=== PATIENT | female | born 1960 | race Caucasian/White ===

== ENCOUNTER 2017-02-01 19:04 | Inpatient (IN) | payer OTHER ==
[~2017-02-01] VITALS: Ht 157.5 cm; Wt 164.2 kg
[2017-02-01 19:04] VITALS: BP 157/79
[~2017-02-01 19:04] MED LIST: ASPIR-LOW81 MG PO; ONDANSETRON HCL4 M2 PO; ONE DAILY 50 P1 EAC1 PO; PERCOCET 10-321 EACH PO; VITAMIN B COMP1 EACH PO
[2017-02-01 22:17] LABS: ABSOLUTE NEUTROPHILS 7.4 thou/uL (1.4-8.2); BASOPHILS 0.5 % (0.0-2.0); EOSINOPHILS 0.8 % (0.0-3.0); HEMATOCRIT 36.9 % (37.0-47.0); HEMOGLOBIN 11.9 gm/dL (12.0-15.0); LYMPHOCYTES 14.7 % (24.0-44.0); MCH 25.3 pg (26.0-34.0); MCHC 32.3 g/dL (28.0-37.0); MCV 78.3 fL (80.0-100.0); MONOCYTES 6.4 % (1.0-8.0); PLATELET COUNT 343 thou/uL (150-400); POLYS 77.6 % (36.0-66.0); RBC 4.71 mil/uL (4.20-5.00); RDW 16.9 % (10.5-14.5); WBC 9.5 thou/uL (4.0-11.0)
[2017-02-01 22:19] LABS: MANUAL DIFF NO
[2017-02-01 22:23] VITALS: BP 152/95
[2017-02-01 22:35] LABS: CALCIUM 9.3 mg/dL (8.5-10.1); CREATININE 0.6 mg/dL (0.6-1.0); POTASSIUM 4.1 mmol/L (3.5-5.1)
[2017-02-01 22:40] LABS: ALBUMIN 3.4 g/dL (3.4-5.0); TOTAL BILIRUBIN 0.3 mg/dL (<0.1-1.0); TOTAL PROTEIN 8.1 g/dL (6.4-8.2)
[2017-02-01 22:54] VITALS: BP 150/71
[2017-02-02 03:20] VITALS: BP 154/67
[2017-02-02 07:54] VITALS: BP 139/73
[2017-02-02 11:52] VITALS: BP 154/80
[2017-02-02 11:59] LABS: HDL CHOLESTEROL 63 mg/dL (>40); TRIGLYCERIDE 121 mg/dL (<150); VLDL 24 mg/dL (<40)
[2017-02-02 12:13] LABS: CHOLESTEROL 157 mg/dL (<200); LDL CHOLESTEROL 70 mg/dL (<100); TC:HDL 2.5 Ratio (Not establshd)
[2017-02-02 15:51] VITALS: BP 140/72
[2017-02-02 19:17] VITALS: BP 132/68
[2017-02-03 05:10] LABS: GLYCOHEMOGLOBIN (HGB A1C) 5.5 % (4.8-5.6)
[2017-02-03 08:16] VITALS: BP 121/76
[2017-02-03 11:42] VITALS: BP 127/74
[2017-02-03 15:53] VITALS: BP 107/56
[2017-02-03 19:31] VITALS: BP 157/79
[2017-02-04 04:12] VITALS: BP 115/84
[2017-02-04 07:44] VITALS: BP 152/80
[2017-02-04 08:00] VITALS: BP 152/80
[2017-02-04] MEDS ORDERED: VOLTAREN GEL 1100 G1 TOP (11:05)
[2017-02-04] MEDS ORDERED: CLEOCIN HCL150 MG PO (11:05)
[2017-02-04] MEDS ORDERED: OXYCODONE HCL30 MG PO (11:05)
[2017-02-04] MEDS ORDERED: NEURONTIN 300300 M1 PO (11:06)
[2017-02-04 11:38] VITALS: BP 152/80
== END 2017-02-04 18:25 | disposition home health service (06) | DRG 872 ==
LOC: ER 19:04 → EROBS 22:19 → 4W 22:19
PROVIDERS: Emergency Medicine; Hospitalist; Nurse Practitioner Acute Care
DX: A41.9 Sepsis, unspecified organism (principal); L03.116 Cellulitis of left lower limb; L03.115 Cellulitis of right lower limb; Z68.44 Body mass index [BMI] 60.0-69.9, adult; E66.01 Morbid (severe) obesity due to excess calories; F41.9 Anxiety disorder, unspecified; M17.10 Unilateral primary osteoarthritis, unspecified knee; Z79.82 Long term (current) use of aspirin; Z79.899 Other long term (current) drug therapy; Z82.0 Family history of epilepsy and other diseases of the nervous system; Z83.6 Family history of other diseases of the respiratory system
CPT/HCPCS: 10047

== ENCOUNTER 2018-02-23 19:10 | Inpatient (IN) | payer OTHER ==
[~2018-02-23] VITALS: Ht 157.5 cm; Wt 187.8 kg
--- NOTE | ~2018-02-23 | HC ---
[facility] [place] [address] CONSULTATION Name: DUARTE CARUSO Room #: 421-P ADM IN M.R.#: [id number] Admission: 02/23/18 Attend Phys: Willis Santos Discharge: Date of : 56 Report #: [id number] THIS REPORT FOR: //name// CC: Willis Santos NO PCP DATE OF SERVICE: 02/24/2018 CHIEF COMPLAINT: Left lower extremity ulceration. HISTORY OF PRESENT ILLNESS: This is a 58-year-old female patient, admitted to the hospital with generalized pain, nausea as well as cellulitis of the left lower extremity. The patient has been failing outpatient treatment and is admitted for further evaluation and treatment. She is currently complaining of significant pain in most of her joints that she relates to osteoarthritis as well as pain and swelling and ulceration to her left lower extremity. PAST MEDICAL HISTORY: Positive for history of morbid obesity, cellulitis of the left leg and gait instability. MEDICATIONS: Include acetaminophen, enoxaparin, gabapentin, morphine, ondansetron, vancomycin. ALLERGIES: None. SOCIAL HISTORY: Negative for alcohol or tobacco use. FAMILY HISTORY: Positive for COPD and seizures in her mother. REVIEW OF SYSTEMS: CONSTITUTIONAL: The patient does complain of some fever and chills. Denies weight loss. She is looking at weight loss surgery possibly. ENT: The patient denies earache, nasal drainage, sore throat. CARDIOVASCULAR: The patient denies chest pain or palpitations, diaphoresis. PULMONARY: The patient denies cough or shortness of breath. GASTROINTESTINAL: The patient denies nausea, vomiting or abdominal pain. ORTHOPEDIC: The patient has pain, swelling of both lower extremities, especially on the left side with open ulceration. Other systems in a 14-point review of systems are negative. PHYSICAL EXAMINATION: VITAL SIGNS: At this time include pulse 70, respiratory rate 18, blood pressure 117/57, temperature 98.0. GENERAL: This is a chronically ill-appearing female patient, appears to be in no distress. HEENT: Head normocephalic. Nose and throat are clear. [facility] [address] [address] CONSULTATION Name: SHADYDUARTE Room #: 421-P ADM IN M.R.#: [id number] Admission: 02/23/18 Attend Phys: Willis Santos Discharge: Date of : 56 Report #: [id number] NECK: Supple. LUNGS: Clear. HEART: Regular rate and rhythm without murmur. ABDOMEN: Soft. Bowel sounds present. EXTREMITIES: Lower extremities demonstrate palpable, but diminished distal pulses. She has ulceration, erythema, drainage, tenderness and redness to the left lower extremity consistent with cellulitis. NEUROLOGIC: The patient is alert, oriented and appropriate. LABORATORY DATA: Sodium 138, potassium 4.4, chloride 101, CO2 of 33, BUN 10, creatinine 0.7, glucose 111, albumin 3.4. White blood cell count 9000 with a hemoglobin of 12.2, hematocrit of 37.7. CLINICAL IMPRESSION: 1. Cellulitis, left lower extremity. 2. Venous type ulceration, left lower extremity. RECOMMENDATIONS: At this point in time, recommend a Silvadene, Xeroform gauze to the left lower extremity, Kerlix, Azam wrap. We will check arterial Dopplers before any further aggressive compression. I have discussed with her the possibility of weight loss surgery consultation while here at the hospital, although at this time she states that she has an appointment with a surgeon at [place]. I appreciate being asked to see the patient in consultation. <ELECTRONICALLY SIGNED> By: Lenard Gonzalez MD 02/25/18 0815 [id number] Lenard Gonzalez MD /nt
[~2018-02-23 19:10] MED LIST changes: +CLEOCIN HCL150 MG PO; +NEURONTIN 300300 M1 PO; +OXYCODONE HCL30 MG PO; +VOLTAREN GEL 1100 G1 TOP
[2018-02-23 19:13] VITALS: BP 172/86
[2018-02-23] MEDS ORDERED: CIPRO500 MG PO (19:35)
[2018-02-23 20:06] LABS: ABSOLUTE NEUTROPHILS 7.1 thou/uL (1.4-8.2); BASOPHILS 0.5 % (0.0-2.0); EOSINOPHILS 1.3 % (0.0-3.0); HEMATOCRIT 37.7 % (37.0-47.0); HEMOGLOBIN 12.2 gm/dL (12.0-15.0); LYMPHOCYTES 12.1 % (24.0-44.0); MCHC 32.4 g/dL (28.0-37.0); MCV 80.4 fL (80.0-100.0); MONOCYTES 7.3 % (1.0-8.0); PLATELET COUNT 293 thou/uL (150-400); POLYS 78.8 % (36.0-66.0); RBC 4.69 mil/uL (4.20-5.00); RDW 17.9 % (10.5-14.5)
[2018-02-23 20:13] LABS: CALCIUM 8.5 mg/dL (8.5-10.1); CREATININE 0.7 mg/dL (0.6-1.0); POTASSIUM 4.3 mmol/L (3.5-5.1)
[2018-02-23 21:36] VITALS: BP 130/56
[2018-02-23 22:00] VITALS: BP 118/65
[2018-02-24 04:56] VITALS: BP 130/68
[2018-02-24 06:35] LABS: CALCIUM 8.4 mg/dL (8.5-10.1); CREATININE 0.7 mg/dL (0.6-1.0); POTASSIUM 4.4 mmol/L (3.5-5.1)
[2018-02-24 15:26] VITALS: BP 134/68
[2018-02-24 19:58] VITALS: BP 170/57
[2018-02-25 04:30] VITALS: BP 140/71
[2018-02-25 07:55] VITALS: BP 149/64
[2018-02-25 16:32] VITALS: BP 149/64
[2018-02-25 19:55] VITALS: BP 144/77
[2018-02-26 03:59] VITALS: BP 156/92
[2018-02-26] MEDS ORDERED: NEURONTIN 300300 M1 PO (09:38)
[2018-02-26] MEDS ORDERED: ZINC SULFATE 2220 M1 PO (09:38)
[2018-02-26] MEDS ORDERED: CLEOCIN HCL150 MG PO (09:38)
== END 2018-02-26 16:49 | disposition home health service (06) | DRG 602 ==
LOC: ER 19:10 → 4E 21:10 → EROBS 21:10 → 4E 21:37
PROVIDERS: Emergency Medicine; Nurse Practitioner Family
DX: L03.116 Cellulitis of left lower limb (principal); E43 Unspecified severe protein-calorie malnutrition; L97.929 Non-pressure chronic ulcer of unspecified part of left lower leg with unspecified severity; Z68.45 Body mass index [BMI] 70 or greater, adult; I87.2 Venous insufficiency (chronic) (peripheral); M19.90 Unspecified osteoarthritis, unspecified site; G47.33 Obstructive sleep apnea (adult) (pediatric); F41.9 Anxiety disorder, unspecified; F32.9 Major depressive disorder, single episode, unspecified; E66.01 Morbid (severe) obesity due to excess calories; Z79.899 Other long term (current) drug therapy; Z79.82 Long term (current) use of aspirin; Z83.6 Family history of other diseases of the respiratory system; Z82.0 Family history of epilepsy and other diseases of the nervous system
CPT/HCPCS: 10084

== ENCOUNTER 2018-07-14 14:56 | Inpatient (IN) | payer OTHER ==
[~2018-07-14] VITALS: Ht 157.5 cm; Wt 136.1 kg
--- NOTE | ~2018-07-14 | HC ---
[facility] [place] [address] CONSULTATION Name: DANAYESICADUARTE Room #: 453-P [facility] IN M.R.#: [id number] Admission: 07/14/18 Attend Phys: Willis Santos Discharge: Date of : 56 Report #: [id number] THIS REPORT FOR: //name// CC: Holger Santos DATE OF SERVICE: 07/15/2018 REASON FOR CONSULTATION: Evaluate left lower extremity venous stasis wound and secondary cellulitis. HISTORY OF PRESENT ILLNESS: The patient was a 58-year-old with underlying history of morbid obesity, venous stasis disease and chronic lymphedema. She also has degenerative arthritis. She has been hospitalized most recently in 04/2018 where she was found to have pseudomonas involvement of her left leg wound, treated with IV antibiotic therapy, discharged on topical gentamicin and ciprofloxacin. She has had difficulty controlling her edema. Social issues play a role. Still morbidly obese with no intervention yet to alleviate this issue. Presents now with increased pain and drainage. She has noticed mild chills, but no documented fever. ALLERGIES: None known. MEDICATIONS: As noted on her MAR, now on clindamycin and Zosyn. PAST MEDICAL HISTORY: Morbid obesity, lymphedema, venous stasis dermatitis, degenerative arthritis, . FAMILY HISTORY: Noncontributory. SOCIAL HISTORY: Nonsmoker, no significant alcohol intake. REVIEW OF SYSTEMS: CONSTITUTIONAL: As noted above. HEENT: Negative. RESPIRATORY: Negative. CARDIOVASCULAR: Negative. GASTROINTESTINAL: Negative. MUSCULOSKELETAL: Arthritis symptoms mostly in her hips and knees. SKIN: As above. NEUROLOGIC: Negative. PSYCHIATRIC: Negative. HEMATOLOGIC/LYMPHATIC: Negative. ENDOCRINE: Negative. PHYSICAL EXAMINATION: [facility] [address] [place] [address] CONSULTATION Name: DUARTE CARUSO Room #: 453-P [facility] IN M.R.#: [id number] Admission: 07/14/18 Attend Phys: Willis Santos Discharge: Date of : 56 Report #: [id number] GENERAL: The patient is sitting up in her chair, alert, cooperative, pleasant, appears her stated age, morbidly obese. HEENT: Without scleral icterus. Mouth without mucositis. NECK: Supple, with no thyromegaly or mass. LUNGS: Clear. HEART: Regular, without murmur. ABDOMEN: Soft and nontender. No appreciable mass. EXTREMITIES: 2+ peripheral edema in both lower extremities with venous stasis dermatitis changes on the right and associated cellulitis with ulceration on the left in the lower anterior lateral pretibial skin. No odorous drainage identified. It is also serous in nature. Pulses in her feet were normal. Sensation in her feet normal. Strength appeared normal as well in both lower extremities. NEUROLOGIC: Cranial nerves intact. Strength in the upper and lower extremities was normal. Overall, limited by her body habitus. PSYCHIATRIC: She is a bit anxious, but otherwise oriented and pleasant. LABORATORY STUDIES: Sodium 138, potassium 3.8, bicarbonate 35, creatinine 0.6. Hemoglobin 9.5, WBC 6.7 and platelet count was 374,000. Liver function test normal. Previous cultures from 04/13/2018 shows Pseudomonas aeruginosa that was sensitive to quinolones, gentamicin, meropenem, Zosyn, tobramycin. IMPRESSION: A 58-year-old with morbid obesity and chronic venous stasis disease due to chronic lymphedema, now with ulceration and secondary infection to the left pretibial skin. She has no documented fever or leukocytosis. Likely pseudomonas involvement persists. PLAN: Would recommend continuing Zosyn. We will need to work on leg elevation to control her swelling as well as compression when out of bed. Topical treatment also would be necessary. Intensive weight loss program recommended. <ELECTRONICALLY SIGNED> By: Shalom Angela MD 07/18/18 1318 [id number] Shalom Angela MD /nt
--- NOTE | ~2018-07-14 | HC ---
[facility] [place] [address] CONSULTATION Name: DUARTE CARUSO Room #: 453-P ADM IN M.R.#: [id number] Admission: 07/14/18 Attend Phys: Willis Santos Discharge: Date of : 56 Report #: [id number] THIS REPORT FOR: //name// CC: Holger Santos DATE OF SERVICE: 07/15/2018 CHIEF COMPLAINT: Ulcerations bilateral lower extremities. HISTORY OF PRESENT ILLNESS: This is a 58-year-old female patient with whom I am familiar from prior hospitalization. She was last hospitalized in 04/2018 with cellulitis and multidrug resistant pseudomonas, venous ulcerations, and morbid obesity. She is still awaiting bariatric surgery, but states that she is much closer. The patient is complaining of significant pain in her legs at this time. She is concerned that her usual dose of medication has not carried through to her hospitalization. PAST MEDICAL HISTORY: Positive for morbid obesity, venous type ulceration to both lower extremities and cellulitis. She has a history of lymphedema and degenerative arthritis. FAMILY HISTORY: Noncontributory. SOCIAL HISTORY: Negative for alcohol or tobacco use. ALLERGIES: None. MEDICATIONS: Noted on her MAR. REVIEW OF SYSTEMS: CONSTITUTIONAL: The patient denies fever, chills or weight loss. NEUROLOGICAL: The patient denies focal weakness. ENT: The patient denies earache, nasal drainage, sore throat. CARDIOVASCULAR: The patient denies chest pain, palpitations or diaphoresis. PULMONARY: The patient denies cough, shortness of breath. GASTROINTESTINAL: Does complain of some generalized abdominal discomfort. Denies nausea or diarrhea. ORTHOPEDIC: The patient complains of pain, swelling in lower extremities, as well as ulcerations bilaterally. Other systems in a 14-point review of systems are negative. PHYSICAL EXAMINATION: VITAL SIGNS: At this time include pulse rate of 80, respiratory rate of 18, blood pressure 147/67, temperature 97.7. [facility] [address] [place] [address] CONSULTATION Name: DUARTE CARUSO Room #: 453-P [facility] IN [facility]#: [id number] Admission: 07/14/18 Attend Phys: Willis Santos Discharge: Date of : 56 Report #: [id number] GENERAL: This is a chronically super morbid obese female patient who appears to be in minimal distress. HEENT: Head normocephalic. Nose and throat are clear. NECK: Supple. LUNGS: Clear. HEART: Regular. ABDOMEN: Soft, bowel sounds present. EXTREMITIES: Lower extremities demonstrate 3+ edema. She has erythematous patches on the pretibial regions bilaterally with ulcerations bilaterally, more so on the left than on the right. They are tender to palpation. LABORATORY DATA: Includes sodium 138, potassium 3.8, CO2 35, BUN 8, creatinine 0.6, glucose 151, total protein 8.1, albumin 3.2. White blood cell count 6.7, hemoglobin of 9.5, hematocrit of 31.1. CLINICAL IMPRESSION: 1. Venous ulcerations, bilateral lower extremities. 2. Cellulitis, bilateral lower extremities. 3. Lymphedema. 4. Super morbid obesity. RECOMMENDATIONS: At this point in time, we will recommend lymphedema therapy to both lower extremities. We will recommend Silvadene morphine compound with Xeroform gauze to the pretibial region and then compression with Kerlix and Azam wrap. We will ask for lymphedema therapy to see her as well. She states that she is scheduled soon for bariatric surgery. Certainly, it would benefit greatly from weight loss. I appreciate being asked to see her in consultation. <ELECTRONICALLY SIGNED> By: Lenard Gonzalez MD 07/18/18 0754 [id number] Lenard Gonzalez MD /nt
[~2018-07-14 14:56] MED LIST changes: +CIPRO250 M1 PO; +CIPRO500 MG PO; +COLACE 100 MG100 MG PO; +GENTAMICIN 0.1%15 G2 TOP; +MIRALAX17 GM PO; +SPIRONOLACTONE25 M1 PO; +TORSEMIDE20 MG PO; +ZINC SULFATE 2220 M1 PO
[2018-07-14 14:58] VITALS: BP 145/68
[2018-07-14] MEDS ORDERED: POTASSIUM OTC PO (15:31)
[2018-07-14 15:51] LABS: ABSOLUTE NEUTROPHILS 6.4 thou/uL (1.4-8.2); BASOPHILS 0.7 % (0.0-2.0); EOSINOPHILS 1.1 % (0.0-3.0); HEMATOCRIT 33.7 % (37.0-47.0); HEMOGLOBIN 10.5 gm/dL (12.0-15.0); LYMPHOCYTES 18.6 % (24.0-44.0); MCH 23.1 pg (26.0-34.0); MCV 74.5 fL (80.0-100.0); MONOCYTES 8.2 % (1.0-8.0); PLATELET COUNT 394 thou/uL (150-400); POLYS 71.4 % (36.0-66.0); RBC 4.53 mil/uL (4.20-5.00); RDW 18.9 % (10.5-14.5)
[2018-07-14 15:55] LABS: CALCIUM 9.1 mg/dL (8.5-10.1); CREATININE 0.7 mg/dL (0.6-1.0); POTASSIUM 3.6 mmol/L (3.5-5.1)
[2018-07-14 16:01] LABS: ALBUMIN 3.2 g/dL (3.4-5.0); TOTAL BILIRUBIN 0.5 mg/dL (<0.1-1.0); TOTAL PROTEIN 8.1 g/dL (6.4-8.2)
[2018-07-14 16:24] LABS: ANISOCYTOSIS 2+; HYPOCHROMASIA SLIGHT; MICROCYTES 1+; POLYCHROMASIA OCCASIONAL
[2018-07-14 18:06] VITALS: BP 126/96
[2018-07-14 18:43] VITALS: BP 153/85
[2018-07-14 19:28] VITALS: BP 135/71
[2018-07-15 04:52] LABS: HEMATOCRIT 31.1 % (37.0-47.0); HEMOGLOBIN 9.5 gm/dL (12.0-15.0); MCH 22.9 pg (26.0-34.0); MCHC 30.6 g/dL (28.0-37.0); MCV 74.6 fL (80.0-100.0); RBC 4.17 mil/uL (4.20-5.00); RDW 18.5 % (10.5-14.5); WBC 6.7 thou/uL (4.0-11.0)
[2018-07-15 05:08] LABS: CALCIUM 8.6 mg/dL (8.5-10.1); CREATININE 0.6 mg/dL (0.6-1.0); POTASSIUM 3.8 mmol/L (3.5-5.1)
[2018-07-15 06:05] VITALS: BP 106/46
[2018-07-15 07:52] VITALS: BP 122/69
[2018-07-15 14:41] VITALS: BP 126/67
[2018-07-15 15:56] LABS: BE(vivo) 6.4 mmol/L (-2 to +3); HCO3 31.9 mmol/L (22.0-26.0); PCO2 50.2 mmHg (35.0-45.0); pH 7.421 (7.360-7.450); sO2 96.6 % (92.0-98.0)
[2018-07-15 19:40] VITALS: BP 147/67
[2018-07-16 05:02] VITALS: BP 122/72
[2018-07-16 14:40] VITALS: BP 129/62
[2018-07-16 19:28] VITALS: BP 137/67
[2018-07-17 07:36] VITALS: BP 131/84
[2018-07-17 08:54] LABS: ALBUMIN 2.9 g/dL (3.4-5.0); CREATININE 0.6 mg/dL (0.6-1.0); PHOSPHORUS 4.2 mg/dL (2.5-4.9); POTASSIUM 3.9 mmol/L (3.5-5.1)
[2018-07-17 19:25] VITALS: BP 152/66
[2018-07-18 05:25] VITALS: BP 161/85
[2018-07-18 07:09] LABS: ABSOLUTE NEUTROPHILS 6.3 thou/uL (1.4-8.2); BASOPHILS 0.7 % (0.0-2.0); EOSINOPHILS 0.5 % (0.0-3.0); HEMATOCRIT 32.5 % (37.0-47.0); HEMOGLOBIN 10.1 gm/dL (12.0-15.0); MCH 22.9 pg (26.0-34.0); MCHC 31.1 g/dL (28.0-37.0); MCV 73.8 fL (80.0-100.0); MONOCYTES 7.2 % (1.0-8.0); PLATELET COUNT 377 thou/uL (150-400); POLYS 75.6 % (36.0-66.0); RDW 18.6 % (10.5-14.5); WBC 8.4 thou/uL (4.0-11.0)
[2018-07-18 07:22] LABS: CALCIUM 9.2 mg/dL (8.5-10.1); CREATININE 0.6 mg/dL (0.6-1.0); POTASSIUM 4.3 mmol/L (3.5-5.1)
[2018-07-18 07:41] VITALS: BP 146/71
[2018-07-18 09:07] LABS: ANISOCYTOSIS 2+; MICROCYTES 1+; PLATELET ESTIMATE NORMAL
[2018-07-18 14:54] VITALS: BP 144/77
[2018-07-18 21:38] VITALS: BP 141/81
[2018-07-19 08:06] VITALS: BP 137/72
[2018-07-19 19:05] VITALS: BP 162/79
[2018-07-20 07:15] VITALS: BP 139/79
[2018-07-20] MEDS ORDERED: PERCOCET 10-321 EACH PO (10:58)
[2018-07-20] MEDS ORDERED: CEFDINIR300 MG PO (10:58)
[2018-07-20 15:02] VITALS: BP 139/79
== END 2018-07-20 17:39 | disposition home or self-care (01) | DRG 871 ==
LOC: ER 14:56 → SICU 17:48 → EROBS 17:48 → 4W 17:48 → SICU 07-18 15:44
PROVIDERS: Emergency Medicine; Family Medicine; Hospitalist; Nurse Practitioner Family
DX: A41.9 Sepsis, unspecified organism (principal); J96.00 Acute respiratory failure, unspecified whether with hypoxia or hypercapnia; L03.116 Cellulitis of left lower limb; Z68.43 Body mass index [BMI] 50.0-59.9, adult; L97.329 Non-pressure chronic ulcer of left ankle with unspecified severity; E87.3 Alkalosis; F11.20 Opioid dependence, uncomplicated; L03.115 Cellulitis of right lower limb; G89.29 Other chronic pain; M19.90 Unspecified osteoarthritis, unspecified site; R73.9 Hyperglycemia, unspecified; E66.01 Morbid (severe) obesity due to excess calories; I87.2 Venous insufficiency (chronic) (peripheral); Z91.14 Patient's other noncompliance with medication regimen; Z98.891 History of uterine scar from previous surgery; Z79.899 Other long term (current) drug therapy; Z82.5 Family history of asthma and other chronic lower respiratory diseases; Z82.0 Family history of epilepsy and other diseases of the nervous system
CPT/HCPCS: 10040; 15002

== ENCOUNTER → 2018-10-31 | Outpatient (CLI) | payer OTHER ==
[~2018-10-31] MED LIST changes: +CEFDINIR300 MG PO; +POTASSIUM OTC PO
== END ==
LOC: HYPER 07-11 07:05
DX: L89.613 Pressure ulcer of right heel, stage 3 (principal); L97.822 Non-pressure chronic ulcer of other part of left lower leg with fat layer exposed; L03.116 Cellulitis of left lower limb; M25.562 Pain in left knee; I89.0 Lymphedema, not elsewhere classified; R26.89 Other abnormalities of gait and mobility; M19.90 Unspecified osteoarthritis, unspecified site; F41.9 Anxiety disorder, unspecified

== ENCOUNTER 2018-11-05 16:15 | Emergency (ER) | payer OTHER ==
[~2018-11-05] VITALS: Ht 157.5 cm; Wt 158.8 kg
--- NOTE | 2018-11-05 17:49 | NUR ---
PT WAS SEEN EARLIER THIS WEEK IN OUTPATIENT. PT IS BACK WITH LEAKING OF MIDLINE AMY. LINE REMOVED 11CM INTACT. PRESSURE HELD, OCCLUSIVE DRG APPLIED. PT WAS PREPPED AND DRAPED FOR MAX BARRIER PRECAUTIONS. AMY CEPHALIC WAS WIDELY PATENT WITH USG,1% LIDOCAINE GIVEN SQ. 4FR POWER MIDLINE TRIMMED TO 15CM INSERTED TO 1CM EXTERNAL WITH BRISK BLOOD RETURN.ML SECURED AND RELEASED FOR IMMEDIATE USE PER PROTOCOL. NEW WALLET CARD GIVEN TO PT WITH ML INFORMATION. VERBALIZED UNDERSTANDING.
[2018-11-05 17:51] VITALS: BP 120/59
== END 2018-11-05 17:59 | disposition home or self-care (01) ==
LOC: ER 16:15
DX: T82.538A Leakage of other cardiac and vascular devices and implants, initial encounter (principal); M19.90 Unspecified osteoarthritis, unspecified site; E66.01 Morbid (severe) obesity due to excess calories; Z68.44 Body mass index [BMI] 60.0-69.9, adult; Y83.9 Surgical procedure, unspecified as the cause of abnormal reaction of the patient, or of later complication, without mention of misadventure at the time of the procedure; Y92.89 Other specified places as the place of occurrence of the external cause
CPT/HCPCS: 27000

== ENCOUNTER → 2018-12-07 | Outpatient (CLI) | payer OTHER | LOC: HYPER 11-14 07:03 | DX: L89.613 Pressure ulcer of right heel, stage 3 (principal); L97.222 Non-pressure chronic ulcer of left calf with fat layer exposed; I89.0 Lymphedema, not elsewhere classified; R60.0 Localized edema; E66.01 Morbid (severe) obesity due to excess calories; M19.90 Unspecified osteoarthritis, unspecified site; F41.9 Anxiety disorder, unspecified; Z68.43 Body mass index [BMI] 50.0-59.9, adult ==

== ENCOUNTER → 2019-09-13 | Outpatient (CLI) | payer OTHER ==
[~2019-09-13] MED LIST changes: +CENTRUM SILVER1 EAC4 PO; +DICLOFENAC SODI75 MG PO; +ENOXAPARIN40 MG/0.1 SUBQ; +LASIX 20 MG TAB20 MG PO; +MEROPENEM 1 GM V1 GM IVPB; +NEURONTIN 400400 M1 PO; +OXYCODONE HCL10 MG PO; +OXYCODONE HCL15 MG PO; +PHENTERMINE HCL30 MG PO; +VITAMIN D2000 UNIT PO; +VOLTAREN GEL 1100 G2 TOP
== END ==
LOC: HYPER 12:13
DX: L97.222 Non-pressure chronic ulcer of left calf with fat layer exposed (principal); I89.0 Lymphedema, not elsewhere classified; E66.01 Morbid (severe) obesity due to excess calories; R26.89 Other abnormalities of gait and mobility; M19.90 Unspecified osteoarthritis, unspecified site; F31.60 Bipolar disorder, current episode mixed, unspecified; F41.9 Anxiety disorder, unspecified

== ENCOUNTER → 2020-08-12 | Outpatient (CLI) | payer OTHER | LOC: HYPER 14:24 | PROVIDERS: ATTEND Emergency Medicine | DX: L89.623 Pressure ulcer of left heel, stage 3 (principal); G60.3 Idiopathic progressive neuropathy; I89.0 Lymphedema, not elsewhere classified; R26.89 Other abnormalities of gait and mobility; M79.675 Pain in left toe(s); M19.90 Unspecified osteoarthritis, unspecified site; E66.01 Morbid (severe) obesity due to excess calories; F31.60 Bipolar disorder, current episode mixed, unspecified ==

== ENCOUNTER → 2020-08-29 | Outpatient (CLI) | payer OTHER | LOC: HYPER 14:38 | PROVIDERS: ATTEND Emergency Medicine | DX: L89.623 Pressure ulcer of left heel, stage 3 (principal); L97.522 Non-pressure chronic ulcer of other part of left foot with fat layer exposed; S91.105A Unspecified open wound of left lesser toe(s) without damage to nail, initial encounter; I89.0 Lymphedema, not elsewhere classified; G60.3 Idiopathic progressive neuropathy; R26.89 Other abnormalities of gait and mobility; M79.675 Pain in left toe(s); L84 Corns and callosities; M19.90 Unspecified osteoarthritis, unspecified site; F31.60 Bipolar disorder, current episode mixed, unspecified; E66.01 Morbid (severe) obesity due to excess calories; F41.9 Anxiety disorder, unspecified; X58.XXXA Exposure to other specified factors, initial encounter; Y93.89 Activity, other specified; Y92.89 Other specified places as the place of occurrence of the external cause; Y99.8 Other external cause status ==

== ENCOUNTER 2020-09-10 15:17 | Inpatient (IN) | payer OTHER ==
[~2020-09-10] VITALS: Ht 157.5 cm; Wt 113.4 kg
[2020-09-10 15:48] VITALS: BP 167/92
[2020-09-10 17:08] LABS: ABSOLUTE NEUTROPHILS 7.4 thou/uL (1.4-8.2); BASOPHILS 0.6 % (0.0-2.0); EOSINOPHILS 0.1 % (0.0-3.0); HEMATOCRIT 45.1 % (37.0-47.0); HEMOGLOBIN 14.7 gm/dL (12.0-15.0); LYMPHOCYTES 12.5 % (24.0-44.0); MCH 28.8 pg (26.0-34.0); MCHC 32.7 g/dL (28.0-37.0); MCV 87.9 fL (80.0-100.0); MONOCYTES 5.6 % (1.0-8.0); PLATELET COUNT 369 thou/uL (150-400); POLYS 81.2 % (36.0-66.0); RBC 5.13 mil/uL (4.20-5.00); RDW 13.9 % (10.5-14.5); WBC 9.1 thou/uL (4.0-11.0)
[2020-09-10 17:18] LABS: CALCIUM 9.2 mg/dL (8.5-10.1); CREATININE 0.6 mg/dL (0.6-1.0); POTASSIUM 4.1 mmol/L (3.5-5.1)
[2020-09-10 17:24] LABS: ALBUMIN 3.8 g/dL (3.4-5.0); TOTAL BILIRUBIN 0.6 mg/dL (0.2-1.0); TOTAL PROTEIN 8.1 g/dL (6.4-8.2)
[2020-09-10 20:46] VITALS: BP 167/81
[2020-09-10 20:57] VITALS: BP 160/69
[2020-09-10 22:05] VITALS: BP 171/82
[2020-09-11 05:05] VITALS: BP 152/82
[2020-09-11 05:21] LABS: HEMATOCRIT 42.3 % (37.0-47.0); MCHC 33.1 g/dL (28.0-37.0); MCV 87.5 fL (80.0-100.0); RBC 4.83 mil/uL (4.20-5.00); RDW 13.7 % (10.5-14.5); WBC 6.4 thou/uL (4.0-11.0)
[2020-09-11 05:46] LABS: CALCIUM 8.8 mg/dL (8.5-10.1); CREATININE 0.7 mg/dL (0.6-1.0)
[2020-09-11 06:06] LABS: POTASSIUM 3.1 mmol/L (3.5-5.1)
[2020-09-11 08:00] VITALS: BP 147/78
--- NOTE | 2020-09-11 14:56 | NUR ---
PT ADMITTED RELATED TO OSTEOMYELITIS, WOUND ON LEFT FOOT SECOND TOE AND HEAL. CM REVIEWED CHART AND SPOKE WITH CARE TEAM. CM MET WITH PT AT BEDSIDE THIS DAY. PT APPEARED TO BE A&O X4. CM ROLE INTRODUCED. PT INDICATED THAT SHE RESIDES IN A HOUSE WITH HER SPOUSE WITH 4 STEPS TO ENTER AND ALL NEEDS ON 1 LEVEL ONCE INSIDE. PT INDICATED THERE ARE STEPS TO BASEMENT BUT HER SPOUSE OR BROTHER DO THE LAUNDRY AND THERE ARE STEPS TO BEDROOM LEVEL BUT PT HAS DAYBED SET UP AND STAYS ON MAIN LEVEL DUE TO HER BAD KNEES AND FEAR OF FAllING ON STAIRS. PT INDICATED SHE HAD BEEN USING A FWW TO ASSIST WITH MOBILITY DIRECTOR OF RETAIL MARKETING, PT INDICATED SHE HAD HCBS QUALIFIES FOR 3.5 HRS 7 DAYS A WEEK BUT SHE HASN'T HAD ANY SERVICES FOR A FEW MONTHS BECAUSE OF THE WORKERS SHE CAN'T FIND A COMPANY SHE LIKES WITH RELIABLE STAFF. PT STATED SHE HAS A LIST OF PROVIDERS. PT INDICATED SHE HAD HH SERVICES FOR WC MWF DIRECTOR OF RETAIL MARKETING AND THAT THE COMPLAY STARTS WITH AN L NURSES'S NAME [facility]. PT'S PCP IS DR. SANON. ORTHO CONSULTED, SEEING PT. PT HAD HOME INFUSION THROUGH [facility] IN THE PAST. CM TO FOLLOW INDICATED WITH DC PLANNING.
[2020-09-11 16:00] VITALS: BP 142/75
--- NOTE | 2020-09-11 19:01 | NUR ---
Assumed pt care at 7am.Pt in bed moaning on and off c/o left foot toes and heel pain.Assessment completed.vss.Meds given as ordered and well tolerated. Dr Marcus and Rolando here, order noted.Drsg change done as ordered.Pt took shower later this evening with analytical scientist assist.Ivf antibiotic infusing at present. Will continue to monitor.
[2020-09-11 20:00] VITALS: BP 153/80
[2020-09-12 00:06] LABS: GLYCOHEMOGLOBIN (HGB A1C) 5.6 % (4.8-5.6)
--- NOTE | 2020-09-12 04:42 | NUR ---
ASSUMED CARE OF PT AT 1900HRS, PT AOX4 AND KETS NEEDS BE KNOWN. PT REPORTED PAIN AND WAS TREATED WITH PRN PAIN MEDS AROUND THE CLOCK WITH SOME RELIEF. PT IS FRUSTRATED BECAUSE SHE IS NOT GETTING 30MG OXYCODONE AT HOME. ASSESSMENT CHARTED. PT RAN SR/ST ON TELE. IV ABX CONTINUED. PT WAS ABLE TO GET COMGORTABLE AND SLEEP PART OF THE SHIFT. VSS AND NO S/S OF ACUTE DISTRESS. WILL CONTINUE TO MONITOR.
[2020-09-12 08:16] VITALS: BP 158/82
--- NOTE | 2020-09-12 10:54 | NUR ---
Assess due to notification of pt with wound to left foot, toe, heal. Hx chronic lymphedema, extreme class III obesity,BMI 45.7. Upon visit, pt immediately voicing extreme frustration with medication, physician issues. Staff aware. Also frustrated that she does not have a menu. Pt reports had gastric sleeve done about 1 1/2 yrs ago and says her weight is down 150 lb. Takes MVI at home, which she wants reordered. Drinks high protein drinks sometimes, states cannot afford them. Appetite is good and eats high protein foods. Requesting Ensure Max all trays. Assisted ordering lunch and provide a menu for pt. Discussed use of less expensive protein sources for home. Pt appeared less agitated towards end of conversation. Low nutrition risk.
[2020-09-12 15:46] VITALS: BP 152/93
--- NOTE | 2020-09-12 16:10 | NUR ---
PT A&OX4, VSS, PAIN IN LEFT FOOT. PAIN MEDICATION GIVEN. PATIENT UPSET THIS AM BECAUSE PAIN MEDICATION WAS STARTED AT A LOWER DOSE. PATIENTS HOME PHARMACY WAS CALLED TO VERIFY AND MATTER RESOLVED. WOUND CARE TO LEFT FOOT COMPLETED. PATIENT IS PLEASANT, BUT CAN BE VERY ANXIOUS AT TIMES. NO SIGNS OF DISTRESS. WILL CONTINUE TO MONITOR.
[2020-09-12 20:01] VITALS: BP 119/77
--- NOTE | 2020-09-13 04:09 | NUR ---
ASSUMED CARE OF PT AT 1900HRS. PT IS AOX4 AND LETS NEEDS BE KNWON. PT REPORTED SOME PAIN AND WAS TREATED WITH PRN PAIN MEDS. PT DENIES NAUSEA OR SOA. ABX TREATMENT CONTINUED. PAIN WAS WELL CONTROLLED THIS SHIFT. ASSESSMENT CHARTED. PT WAS ABLE TO SLEEP PART OF THE SHIFT. VSS AND NO S/S OF ACUTE DISTRESS. WILL CONTINUE TO MONITOR.
[2020-09-13 09:16] VITALS: BP 113/77
[2020-09-13] MEDS ORDERED: LISINOPRIL2.5 MG PO (13:59)
[2020-09-13] MEDS ORDERED: CEFDINIR300 MG PO (14:33)
[2020-09-13 14:57] VITALS: BP 113/77
[2020-09-13 15:25] VITALS: BP 113/77
--- NOTE | 2020-09-13 15:30 | NUR ---
CARE TEAM INDICATED THAT PT IS MEDIALLY STABLE TO DC HOME THIS DAY. PT IS TO RESUME HH SERVICES WITH [facility]. CM CALLED OFFICE AND NOTIFIED THEM OF PT'S DC HOME THIS DAY. THEY ARE TO RESUME SERVICES. PT HAS LIST TO CALL FOR NEW HCBS PROVIDERS AND WILL CALL. PT TO [facility] BEDSIDE [facility]ONDE. PT'S FAMILY TO PROVIDE TRANSPORT HOME. NO OTHER CM INTERVENTION INDICATED. CASE CLOSED.
--- NOTE | 2020-09-13 17:48 | NUR ---
Assumed pt care at 7am.Assessment completed.vss.Pt wanted to know when she will be dc home today.Dr Marcus and Coreen here,dc order noted.Pt requested for pain med for home use.Dr Fischer wrote oxycodone 30mg 15 counts.Dc summary compile and reviewed with pt.Pt refused wound picture taken,she said she doesn't want to miss picking up rx from pharmacy.At 1715,pt dc home in after saline was dc.
== END 2020-09-13 18:05 | disposition home health service (06) | DRG 539 ==
LOC: ER 15:17 → EROBS 20:18 → 4W 20:18
PROVIDERS: Nurse Practitioner Family; Physician Assistant; ADMIT Hospitalist; ATTEND Hospitalist
DX: M86.8X6 Other osteomyelitis, lower leg (principal); L89.623 Pressure ulcer of left heel, stage 3; F11.20 Opioid dependence, uncomplicated; Z68.42 Body mass index [BMI] 45.0-49.9, adult; Z20.822 Contact with and (suspected) exposure to COVID-19; M19.90 Unspecified osteoarthritis, unspecified site; E66.01 Morbid (severe) obesity due to excess calories; G62.9 Polyneuropathy, unspecified; I10 Essential (primary) hypertension; G47.33 Obstructive sleep apnea (adult) (pediatric); L97.529 Non-pressure chronic ulcer of other part of left foot with unspecified severity; I89.0 Lymphedema, not elsewhere classified; G89.4 Chronic pain syndrome; I87.8 Other specified disorders of veins; F41.1 Generalized anxiety disorder; E87.6 Hypokalemia; S91.302A Unspecified open wound, left foot, initial encounter; X58.XXXA Exposure to other specified factors, initial encounter; Y93.89 Activity, other specified; Y92.89 Other specified places as the place of occurrence of the external cause; Y99.8 Other external cause status
CPT/HCPCS: 10045

== ENCOUNTER 2020-11-09 12:19 | Emergency (ER) | payer OTHER ==
[~2020-11-09] VITALS: Ht 157.5 cm; Wt 90.7 kg
[~2020-11-09 12:19] MED LIST changes: +LISINOPRIL2.5 MG PO
[2020-11-09] MEDS ORDERED: KLOR-CON 10 ER10 MEQ PO (12:32)
[2020-11-09 14:08] VITALS: BP 154/79
== END 2020-11-09 16:28 | disposition home or self-care (01) ==
LOC: ER 12:19
DX: S80.02XA Contusion of left knee, initial encounter (principal); S80.01XA Contusion of right knee, initial encounter; R07.81 Pleurodynia; Z79.899 Other long term (current) drug therapy; W10.9XXA Fall (on) (from) unspecified stairs and steps, initial encounter; Y93.89 Activity, other specified; Y92.89 Other specified places as the place of occurrence of the external cause; Y99.8 Other external cause status

== ENCOUNTER → 2021-08-07 | Outpatient (CLI) | payer OTHER ==
[~2021-08-07] MED LIST changes: +KLOR-CON 10 ER10 MEQ PO
== END ==
LOC: HYPER 14:58
PROVIDERS: ATTEND Emergency Medicine
DX: L89.623 Pressure ulcer of left heel, stage 3 (principal); L89.892 Pressure ulcer of other site, stage 2; L03.116 Cellulitis of left lower limb; I89.0 Lymphedema, not elsewhere classified; G60.3 Idiopathic progressive neuropathy; I73.9 Peripheral vascular disease, unspecified; R26.89 Other abnormalities of gait and mobility; L84 Corns and callosities; M19.90 Unspecified osteoarthritis, unspecified site; E66.01 Morbid (severe) obesity due to excess calories; F41.9 Anxiety disorder, unspecified; Z68.31 Body mass index [BMI] 31.0-31.9, adult; Z79.899 Other long term (current) drug therapy